=== PATIENT | male | born 1940 | race Caucasian/White ===

== ENCOUNTER 2025-03-16 15:09 | Outpatient (CLI) | payer MEDICARE, SELFPAY ==
--- NOTE | ~2025-03-16 | US_ITS ---
EXAM: RENAL ULTRASOUND HISTORY: R94.4 - Abnormal results of kidney function studies COMPARISON: None FINDINGS: RIGHT KIDNEY: 10.2 x 5.2 x 5.2 cm. The parenchyma of the right kidney is increased in echogenicity. No hydronephrosis or bulky renal calculi. Within the upper pole of the right kidney is a well-circumscribed anechoic avascular focus measuring 2.3 x 1.5 x 2.0 cm, consistent with a simple cyst. LEFT KIDNEY: 10.5 x 5.0 x 4.9 cm No hydronephrosis or renal calculi. The parenchyma of the left kidney is increased in echogenicity. A single rounded avascular anechoic focus is present within the interpolar region of the left kidney measuring 2.2 x 1.9 x 1.8 cm, consistent with a simple cyst. BLADDER: The bladder is only minimally distended, and otherwise unremarkable. IMPRESSION: No hydronephrosis or renal calculi. Findings suggesting medical renal disease. Bilateral simple cysts, as detailed above. Reviewed, dictated and finalized at location A.
== END 2025-03-16 15:10 | disposition home or self-care (01) ==
LOC: MICIMG 15:10
PROVIDERS: PCP Internal Medicine Nephrology; Visit Provider Internal Medicine Nephrology
DX: R94.4 Abnormal results of kidney function studies (principal); N28.1 Cyst of kidney, acquired
CPT/HCPCS: 76775

== ENCOUNTER 2025-06-03 14:54 | Emergency (ER) | payer MEDICARE, SELFPAY ==
--- NOTE | ~2025-06-03 | XR_ITS ---
EXAMINATION: XR hand RT min 3V DATE: 06/03/2025 15:33 INDICATION: Right hand dog bite. Skin tear near second MTP joint TECHNIQUE: 3 images of the right hand were obtained. COMPARISON: None. FINDINGS: Bones appear osteopenic. No fracture. No dislocation. Severe degenerative change in the first metacarpophalangeal joint. Moderate joint space narrowing in the first MCP, interphalangeal joint of the thumb and second through fifth PIP and DIP joints. Soft tissue swelling about the right hand. No metallic radiopaque foreign body identified. Vascular calcifications are present. IMPRESSION: 1. No fracture identified. 2. Soft tissue swelling about the right hand. 3. No metallic radiopaque foreign body identified. 4. Degenerative change in the right hand as detailed above. If symptoms persist or worsen, consider a short-term follow-up study or additional imaging for further assessment. Reviewed, dictated and finalized at location Q. IMPRESSION: 1. No fracture identified. 2. Soft tissue swelling about the right hand. 3. No metallic radiopaque foreign body identified. 4. Degenerative change in the right hand as detailed above. If symptoms persist or worsen, consider a short-term follow-up study or additio nal imaging for further assessment.
[2025-06-03 15:11] VITALS: BP 105/64; PULSE 84; RESP 18; TEMP 36.6; O2SAT 96
--- NOTE | 2025-06-03 15:28 | ED_ITS ---
HPI - Skin/Abscess/Foreign Bdy General Chief complaint: Skin/Abscess/Foreign Body Stated complaint: Dog Bite Time Seen by Provider: 06/03/25 15:20 Source: patient and RN notes reviewed Mode of arrival: ambulatory Limitations: no limitations History of Present Illness HPI narrative: 84-year-old male presents [facility] complaining of right hand injury from a dog bite. 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 Patient is a skin tear to his right hand near the posterior surface of his 2nd MCP joint. The patient has a skin avulsion this area. There is no skin to reattached to the area. Patient says the dogs rabies are up-to-date. Patient's tetanus is not up-to-date. Bleeding is controlled, patient does take Xarelto for history of blood clots. Patient denies any numbness or tingling or any other injuries. Patient to the bike occurred earlier this morning. Related Data Home Medications ?Medication ?Instructions ?Recorded ?Confirmed ?Last Taken ?Type cyanocobalamin (vitamin B-12) 2,500 mcg PO DAILY 04/0605/14/25 Unknown History 2,500 mcg tablet Allergies Allergy/AdvReac Type Severity Reaction Status Date / Time No Known Allergies Allergy Verified 06/03/25 14:58 Review of Systems Review of Systems: CONSTITUTIONAL: Denies fever, chills, or sweats. EYES: Denies visual changes, redness, or discharge. ENT: Denies rhinorrhea, congestion, sore throat, or otalgia. CARDIOVASCULAR: Denies chest pain, palpitations, or edema. RESPIRATORY: Denies cough or dyspnea. GASTROINTESTINAL: Denies abdominal pain, nausea, vomiting, or diarrhea. GENITOURINARY: Denies dysuria or hematuria. SKIN: Denies rash or itching. Positive for dog bite and skin tear. MUSCULOSKELETAL: Denies back pain, joint pain, or myalgia. NEUROLOGIC: Denies headache, numbness, or weakness. PSYCHIATRIC: Denies anxiety or depression. All other systems reviewed are negative, except as documented in HPI. [facility] Past Medical History Medical History Cataracts, bilateral Long-term insulin use Type 2 diabetes mellitus without complications Dietary counseling and surveillance Body mass index [BMI] 40.0-44.9, adult (09/05/15) Chronic atrial fibrillation DVT of left axillary vein, acute Dyspnea on exertion Dysthymic disorder Erectile dysfunction Morbid (severe) obesity due to excess calories Other pulmonary embolism without acute cor pulmonale Shortness of breath Vitamin D deficiency BMI greater than 30 BMI 38.0-38.9,adult Neuropathy BMI 36.0-36.9,adult ASHD (arteriosclerotic heart disease) Hyperlipidemia, unspecified Surgical History Surgical History No pertinent past surgical history Family History Family History Mother Family history of heart disease in male family member before age 55 Hypertension Social History Social History Smoking packs per day: 1 Smoking cigarettes per day: 20.0 Years smoked: 30 Smoking pack-years: 30.00 Smoking status: Former smoker Alcohol intake: current Alcohol use details: rarely Substance use: never Substance use type: does not use and marijuana Do You Feel Safe in your Home?: Yes Lack of Transportation: No Lack of Food: Never True Current Housing: I Have Housing Concerned About Future Housing: No Difficulty Paying Gas/Electric Bills: No Difficulty Paying for Meds: YES Currently Unemployed: No Education: Grade School Difficulty w/ Childcare or Family Care: No Comments At the time of my signature, I reviewed and agree with the nursing past medical, surgical, social, and family history. There is no relevant family history pertinent to the patient complaint. Exam Narrative: GENERAL: This is a well-nourished, well-developed adult, in no apparent distress. They are non ill-appearing, nontoxic appearing. HEAD: normocephalic, atraumatic. EYES: Sclera clear/white. Conjunctiva normal. Vision is grossly intact. Extraocular movements intact EARS: External ears normal, Hearing grossly intact. NOSE: External nose normal THROAT: Mucous membranes moist, NECK: Neck supple, CARDIOVASCULAR: Regular rate and rhythm RESPIRATORY: Respiratory rate normal, respiratory effort nonlabored, no respiratory distress SKIN: Right hand: There is a skin avulsion present to the dorsal surface of the hand near the 1st MCP joint. There is no skin to approximate to the wound margins. Skin tear is superficial. Bloody drainage noted. No itis deformity, bruising or swelling. No bony tenderness. Patient make a fist, stop sign, thumbs-up sign, okay sign. Normal range of motion of fingers. Normal sensation. Capillary refill less than 2 seconds. Neurovascular status intact distal injury. Radial ulnar nerve distribution intact. NEURO: awake, alert, and oriented to person, place and time. There were no obvious focal neurologic abnormalities. EXTREMITIES: No joint tenderness, effusion, or edema noted. Course Course Emergency Course: Portions of this record may have been created with voice recognition software Level of Care: Express Care Visit Vital Signs Vital signs: Vital Signs Temperature 97.8 F 06/03/25 15:11 Pulse Rate 84 06/03/25 15:11 Respiratory Rate 18 06/03/25 15:11 Blood Pressure 105/64 06/03/25 15:11 Pulse Oximetry 96 06/03/25 15:11 Oxygen Delivery Room Air 06/03/25 15:11 Temperature 97.8 F 06/03/25 15:11 Pulse Rate 84 06/03/25 15:11 Respiratory Rate 18 06/03/25 15:11 Blood Pressure 105/64 06/03/25 15:11 Pulse Oximetry 96 06/03/25 15:11 Oxygen Delivery Room Air 06/03/25 15:11 Reviewed MDM - Skin/Abscess/Foreign Bdy MDM Narrative Medical decision making narrative: Patient's tetanus is updated today. X-ray right hand negative for any fractures or acute findings. Wound was copiously irrigated with saline with at least 600 mL of fluid. There is no skin to reattached to the skin tear appears to be a skin avulsion. Neurovascular status intact distal to patient's injury. Wet to dry dressing applied with Vaseline gauze. Will send patient home prophylactically on Augmentin. Discussed physical exam findings. Advised supportive measures and signs/symptoms to go to the ER. Pt is appropriate for outpt treatment and f/u. Differential Diagnosis Differential diagnosis: Likely other (Skin avulsion, dog bite, skin laceration, skin tear, hand fracture, finger fracture) Imaging Data Radiologist's impression: ITS Impressions Hand X-Ray 06/03/25 15:37 IMPRESSION: 1. No fracture identified. 2. Soft tissue swelling about the right hand. 3. No metallic radiopaque foreign body identified. 4. Degenerative change in the right hand as detailed above. If symptoms persist or worsen, consider a short-term follow-up study or additional imaging for further assessment. Critical Care Time Critical Care Time Critical Care Time: No Discharge Plan Discharge Clinical Impression: Dog bite Qualifiers: Encounter type: initial encounter Qualified Code(s): W54.0XXA - Bitten by dog, initial encounter Avulsion of skin of hand Qualifiers: Encounter type: initial encounter Laterality: right Qualified Code(s): S61.401A - Unspecified open wound of right hand, initial encounter Patient Disposition: Home Condition: Stable Instructions: Antibiotic Form, Animal Bite (ED), Skin Avulsion (ED) Additional Instructions: The x-ray of your right hand is negative for any fractures or acute findings. Your tetanus was updated today. This is a skin avulsion with the skin was removed completely from the dog bite. Skin will heal through the process called secondary intention. Please wash the wound daily with mild soap and water do not soak or scrub the wound. Avoid dirty water until the wound has healed completely. Change the dressing daily or when visibly sore old and apply a wet to dry dressing such as Vaseline gauze, dry gauze, and roll gauze to secure the dressing. Take the augmentin has directed. Follow up with PCP in 3 to 5 days. F/u with hand specialist if you have issues with skin healing or issues with hand function. Go to the ER if he develops signs of infection such as increased redness, swelling, pain, green/yellow drainage, fevers, or any serious concerns. Patient Language: Arabic Prescriptions: New amoxicillin-pot clavulanate 875-125 mg tablet 1 tablet PO Q12H 7 Days Qty: 14 0RF No Action Trulicity 4.5 mg/0.5 mL pen injector 4.5 mg subcut WEEKLY Qty: 6 1RF (DME) pen needle, diabetic [BD Ultra-Fine Micro Pen Needle] 32 gauge x 1/4 needle See Rx Instructions .Route Qty: 100 2RF Rx Instructions: As directed glucose [Dex4 Glucose] 4 gram tablet,chewable 16 g PO Q15M PRN (Reason: hypoglycemia) Qty: 60 1RF Rx Instructions: until symptoms of low blood sugar are controlled cholecalciferol (vitamin D3) 50 mcg (2,000 unit) capsule 100 mcg PO DAILY Qty: 180 2RF cyanocobalamin (vitamin B-12) 2,500 mcg tablet 2,500 mcg PO DAILY lisinopril 30 mg tablet See Rx Instructions .ROUTE .COMPLEX Qty: 90 3RF Dose Instruction: TAKE 1 TABLET BY MOUTH DAILY Rx Instructions: TAKE 1 TABLET BY MOUTH DAILY diltiazem HCl 120 mg capsule,extended release 24 hr See Rx Instructions .ROUTE .COMPLEX Qty: 90 3RF Dose Instruction: TAKE 1 CAPSULE BY MOUTH DAILY Rx Instructions: TAKE 1 CAPSULE BY MOUTH DAILY lovastatin 10 mg tablet See Rx Instructions .ROUTE .COMPLEX Qty: 90 3RF Dose Instruction: TAKE 1 TABLET BY MOUTH EVERY DAY AT BEDTIME Rx Instructions: TAKE 1 TABLET BY MOUTH EVERY DAY AT BEDTIME Xarelto 20 mg tablet See Rx Instructions .ROUTE .COMPLEX Qty: 90 2RF Dose Instruction: TAKE 1 TABLET BY MOUTH DAILY Rx Instructions: TAKE 1 TABLET BY MOUTH DAILY hydrochlorothiazide 25 mg tablet See Rx Instructions .ROUTE .COMPLEX Qty: 90 3RF Dose Instruction: TAKE 1 TABLET BY MOUTH DAILY Rx Instructions: TAKE 1 TABLET BY MOUTH DAILY folic acid 1 mg tablet See Rx Instructions .ROUTE .COMPLEX Qty: 90 3RF Dose Instruction: TAKE 1 TABLET BY MOUTH DAILY Rx Instructions: TAKE 1 TABLET BY MOUTH DAILY dapagliflozin propanediol [Farxiga] 10 mg tablet 10 mg PO QAM Qty: 90 2RF Rx Instructions: AZ&ME testosterone cypionate 200 mg/mL oil 200 mg IM .every 2 weeks Qty: 6 2RF insulin degludec [Tresiba FlexTouch U-200] 200 unit/mL (3 mL) insulin pen 38 unit subcut QHS MDD 38 Qty: 18 3RF Follow-up/Referrals: Shashi Ho MD [Primary Care Provider, Internal Medicine] Time of Disposition: 16:14
[2025-06-03] MEDS: TETANUS,DIPHTHERIA,AC PERTUSSIS ADULT (0.5 ML) BOOSTRIX IM (15:36)
== END 2025-06-03 16:19 | disposition home or self-care (01) ==
PROVIDERS: PCP Emergency Medicine
DX: S61.451A Open bite of right hand, initial encounter (principal); W54.0XXA Bitten by dog, initial encounter; Z87.891 Personal history of nicotine dependence; E11.42 Type 2 diabetes mellitus with diabetic polyneuropathy; Z79.4 Long term (current) use of insulin; Z79.84 Long term (current) use of oral hypoglycemic drugs; Z79.85 Long-term (current) use of injectable non-insulin antidiabetic drugs; I25.10 Atherosclerotic heart disease of native coronary artery without angina pectoris; E66.01 Morbid (severe) obesity due to excess calories; Z68.33 Body mass index [BMI] 33.0-33.9, adult; E78.5 Hyperlipidemia, unspecified; Z86.711 Personal history of pulmonary embolism; Z86.718 Personal history of other venous thrombosis and embolism; Z79.01 Long term (current) use of anticoagulants
CPT/HCPCS: 73130; 90471; 90715; 99213; G0463

== ENCOUNTER 2025-07-19 10:24 | Outpatient (CLI) | payer MEDICARE, SELFPAY ==
--- NOTE | ~2025-07-19 | XR_ITS ---
EXAMINATION: XR hand RT min 3V, 07/19/2025 10:45 CDT HISTORY: G56.01 - Carpal tunnel syndrome, right upper limb COMPARISON: No comparisons available. Findings: No acute fracture or malalignment. Severe degenerative changes of the distal and proximal interphalangeal joints as well as the first metacarpal carpal joint with fragmentation and small erosions. Soft tissues unremarkable. Impression: Severe degenerative changes Reviewed, dictated and finalized at location P. Impression: Severe degenerative changes
== END 2025-07-19 10:25 | disposition home or self-care (01) ==
PROVIDERS: PCP Emergency Medicine; Visit Provider Plastic Surgery
DX: G56.01 Carpal tunnel syndrome, right upper limb (principal); M19.041 Primary osteoarthritis, right hand
CPT/HCPCS: 73130